=== PATIENT | female | born 1930 | race Caucasian/White ===

== ENCOUNTER 2017-04-02 04:55 | Day surgery (SDC) | payer OTHER ==
[2017-04-02] MEDS ORDERED: LR 1,000 ML IV ONE (06:19)
--- NOTE | 2017-04-02 06:57 | PDHPUP ---
History & Physical Update H&P update statement: This history and physical update is based on an assessment of the patient which was completed after admission or registration (within 24 hours), but prior to the surgery/procedure. H&P update: H&P reviewed & patient examined, no change in patient's condition since H&P completed
[2017-04-02] MEDS ORDERED: CHLORHEXIDINE GLUC HIBICLENS 118 ML BTL TP ONE (07:02)
[2017-04-02] MEDS ORDERED: SURGIFLO MATRIX KIT WITH THROMBIN 8ml TP ONE (07:02)
[2017-04-02] MEDS ORDERED: BUPIVACAINE 0.25% 30 ML SDV ONE (07:03)
[2017-04-02] MEDS ORDERED: BACITRACIN 50,000 UNITS/10 ML SYR IRR ONE (07:03)
[2017-04-02] MEDS ORDERED: THROMBIN (BOVINE) 5,000 UNIT VIAL TP ONE (07:03)
--- NOTE | 2017-04-02 07:10 | PDANEPAE ---
ANE History of Present Illness 87 year old with chronic pain ANE Past Medical History - Cardiovascular History Hx Hypertension: Yes Hx Arrhythmias: No Hx Chest Pain: No Hx Coronary Artery / Peripheral Vascular Disease: No Hx CHF / Valvular Disease: No Hx Palpitations: No Cardiovascular History Comment: pcp monitors bp meds - Pulmonary History Hx COPD: No Hx Asthma/Reactive Airway Disease: No Hx Recent Upper Respiratory Infection: No Hx Oxygen in Use at Home: No Hx Sleep Apnea: No Sleep Apnea Screening Result - Last Documented: Negative - Neurologic History Hx Cerebrovascular Accident: No Hx Seizures: No Hx Dementia: No - Endocrine History Hx Diabetes: No - Renal History Hx Renal Disorders: No - Liver History Hx Hepatic Disorders: No - Neurological & Psychiatric Hx Hx Neurological and Psychiatric Disorders: No - Cancer History Hx Cancer: No - Congenital Disorder History Hx Congenital Disorders: No - GI History Hx Gastrointestinal Disorders: Yes Gastrointestinal History Comment: reflux. constipation - Other Health History Other Health History: wears glasses. upper denture - Chronic Pain History Chronic Pain: Yes (back, groin and lower legs) - Surgical History Prior Surgeries: hemorrhoidectomy. right total shoulder replacement. bilateral knee replacement. margaret. cataracts ANE Review of Systems Review of systems is: negative Review of Systems: - Exercise capacity METS (RN): 3 METS ANE Patient History - Allergies Allergies/Adverse Reactions: No Known Allergies Allergy (Verified 03/19/17 11:06) - Home Medications Home Medications: Lisinopril-Hctz 10-12.5 mg Tab BID 03/19/17 [Last Taken Unknown] Omeprazole DAILY AT 6AM 03/19/17 [Last Taken Unknown] Senna PRN 03/19/17 [Last Taken Unknown] Tylenol BID 03/19/17 [Last Taken Unknown] oxyCODONE IR BID 03/19/17 [Last Taken Unknown] - NPO status NPO Since - Liquids (Date): 04/01/17 NPO Since - Solids (Date): 04/01/17 - Smoking Hx Smoking Status: Never smoked - Family Anes Hx Family Hx Anesthesia Complications: unknown ANE Labs/Vital Signs - Vital Signs Blood Pressure: 137/69 Heart Rate: 84 Respiratory Rate: 16 O2 Sat (%): 84 Height: 149.86 cm Weight: 68.039 kg ANE Physical Exam - Airway Neck exam: FROM Mallampati Score: Class 1 Mouth exam: normal dental/mouth exam - Pulmonary Pulmonary: no respiratory distress - Cardiovascular Cardiovascular: regular rate and rhythym - ASA Status ASA Status: II ANE Anesthesia Plan Anesthesia Plan: MAC
[2017-04-02] MEDS ORDERED: LIDOCAINE 1% 300 MG/30 ML SDV ONE (07:17)
[2017-04-02] MEDS ORDERED: fentaNYL 100 MCG/2 ML INJ ONE ×3 (07:33→09:05)
[2017-04-02] MEDS ORDERED: MIDAZOLAM 2 MG/2 ML VIAL ONE (09:02)
[2017-04-02] MEDS ORDERED: PROPOFOL 200 MG/20 ML VIAL ONE (09:30)
[2017-04-02] MEDS ORDERED: ONDANSETRON DISINTEGRATING 4 MG TAB PO PRN (09:58)
[2017-04-02] MEDS ORDERED: ONDANSETRON 4 MG/2 ML VIAL IVP PRN ×2 (09:58→10:10)
[2017-04-02] MEDS ORDERED: OXYCODONE/APAP 5/325 TAB PO PRN (09:58)
[2017-04-02] MEDS ORDERED: PROMETHAZINE HCL 25 MG/ML INJ IVP PRN (10:10)
[2017-04-02] MEDS ORDERED: fentaNYL 100 MCG/2 ML INJ IVP PRN (10:10)
[2017-04-02] MEDS ORDERED: NALOXONE HCL 0.4 MG/ML INJ IVP PRN (10:10)
[2017-04-02] MEDS ORDERED: HYDROCODONE/APAP 5/325 TAB PO PRN (10:10)
--- NOTE | 2017-04-02 10:10 | GOP ---
[f rep st] OPERATIVE REPORT DATE OF OPERATION: 04/02/2017 SURGEON: Ambreen King DO [employer] SUPERVISOR: Geni Koch PA-C. PREOPERATIVE DIAGNOSIS: 1. Chronic pain syndrome. 2. Spondylosis, nonoperative. POSTOPERATIVE DIAGNOSIS: 1. Chronic pain syndrome. 2. Spondylosis, nonoperative. PROCEDURE PERFORMED: Anchoring, tunneling of percutaneous spinal cord stimulator leads placed by Dr. Niya Xavier and placement of Medtronic non-rechargeable generator to left hip. FINDINGS: SPECIMENS: None. ESTIMATED BLOOD LOSS: 5 mL. INDICATIONS: This is an 87-year-old female who underwent a percutaneous spinal cord stimulator trial with excellent results. Elected to move forward with generator. Dr. Xavier has asked that I help he r place the generator when she places the permanent perc leads. She was identified and consented. S ites were marked, including the level of her belt line, she elected to have the generator replaced on the left. Brought to the operating room, anesthetized under local with MAC. Rolled onto the OR bed with a Mitch frame. All pressure points were appropriately padded. She was prepped and draped in the usual sterile fashion. She was anesthetized with 0.25% Marcaine with epinephrine and Dr. Xavier, please see her dictation, percutaneously placed spinal cord stimulator leads. Incision was made arou nd the needles. The needles were retracted. The stylettes were removed and the Injex bumpy anchors we re placed x2. Two incisions were required as we had two in space needle placements. There was a pocket made with Metzenbaum scissors that connected the two and the anchors were sutured into place with 2-0 silk stitch at 2 positions. We did have some migration and so the anchors were remove d and then the leads were replaced. The anchors were replaced under x-ray. There was no migration aft er anchoring with 2-0 silk stitch at 2 positions as well as a strain relief loop that was placed and the loop was anchored with a 2-0 silk stitch. We then tunneled with a HELM [employer] tunneler down to the pocket. Pocket incision had been made with a 10 blade and a subcutaneous pocket had been created wi th blunt dissection. The leads were brought down out through the tunnel, the straw was discarded. Th e leads were placed in appropriate position and the generator locked in place with a torque wrench, c oiled posterior to the generator, placed it into the pocket. Impedances were checked. All impedances were good. The generator was sutured with 2-0 silk stitch at 2 positions. All incisions were copiou sly irrigated with over a liter each of gentamicin infused saline. We closed the lumbar incisions wit h 2-0 Vicryl pop-offs subcutaneous layer and a 3-0 running nylon for skin. The hip incision was clos ed with 2-0 Vicryl pop-offs for subcutaneous, 3-0 Vicryl pop-offs cutaneous, 4-0 running Monocryl sub cuticular stitch, and Steri-Strips. All lumbar wounds were dressed with Xeroform, gauze, and Tegaderm . Hip incision was dressed with gauze and a Tegaderm. The final x-ray after tunneling revealed no m igration of the leads with the tips at the top of the T9 vertebral body. DESCRIPTION OF PROCEDURE: FLUIDS: 800 mL crystalloid. URINE OUTPUT: None. DRAINS: None. COMPLICATIONS: None. /[id number]/MODL
--- NOTE | 2017-04-02 10:12 | POSTANESTH ---
Post Anesthetic Evaluation Cardiovascular Status: Normal, Stable Respiratory Status: Normal, Stable Level of Consciousness/Mental Status: Can Participate in Eval Pain Control: Adequate, Prn Tx Ordered Nausea/Vomiting Control: Adequate, Prn Tx Ordered Complications Possibly Related to Anesthesia: None Noted
--- NOTE | 2017-04-02 10:29 | POSTOPPROG ---
Post Op Note Date of Operation: 04/02/17 Surgeon: Ambreen King Electro Mechanical Technician: Dr. Xavier Anesthesia: IV Sedation Pre-op Diagnosis: Chronic pain Post-op Diagnosis: Chronic pain Inf/Abcess present in the surg proc area at time of surgery?: No Depth: Deep Incisional (Fascial) EBL: Minimal Plan Plan: 87 yo female s/p percutaneous SCS implant with generator to the right hip - neuro checks - pain control - advance diet as tolerated - dc home Exam Awake. Alert Following commands Muscle strength full at 5/5 Sensation intact
[2017-04-02 11:14] VITALS: PULSE 93; RESP 18; TEMP 98.1
[2017-04-02 11:32] VITALS: BP 145/72; O2SAT 94
--- NOTE | 2017-04-02 12:35 | GOP ---
[f rep st] OPERATIVE REPORT DATE OF OPERATION: 04/02/2017 SURGEON: Niya Xavier MD PREOPERATIVE DIAGNOSIS: 1. Chronic pain syndrome. 2. Spondylosis with radiculopathy. POSTOPERATIVE DIAGNOSIS: 1. Chronic pain syndrome. 2. Spondylosis with radiculopathy. PROCEDURE PERFORMED: A fluoroscopically guided bilateral 8-contact spinal cord stimulator lead place ment. FINDINGS: INDICATIONS: The patient is a very pleasant 87-year-old woman who has had severe longstanding pain a cross her lower back with radiation to both groin regions. She has been treated with a multitude of conservative therapies, but unfortunately continues to have very severe pain. She underwent a spinal cord stimulator trial on 03/10/2017. She had excellent pain relief during the trial. The trial aysha ctrodes provided coverage of both her lower back and her groin pain, which have been limiting her lashaun lity to be functional. She is here today to have permanent implantation of bilateral spinal cord sti mulator leads, which will be placed by myself. Subsequently, the leads will be tunneled and a genera tor will be placed by Dr. Ambreen King. DESCRIPTION OF PROCEDURE: The patient was placed in the prone position. Her back was prepped and dr aped in usual sterile fashion. The skin was localized at the L2 level with lidocaine 1% 4 cc. Subse quently, a 14-gauge curved-tipped Tuohy needle was then advanced to the epidural space entering at th e L1-2 level. Positive loss of resistance was obtained. No CSF was aspirated and no heme was aspira rhona. Subsequently, an 8-contact spinal cord stimulator lead was then advanced through the needle. W ith direct continuous fluoroscopic visualization, the lead was advanced in a cephalad direction and p laced at the superior aspect of T9 for its most superior contacts. A second 14-gauge Tuohy needle wa s advanced to the epidural space adjacent to the first. Again, positive loss of resistance was obtai franky. No CSF was aspirated and no heme was aspirated. A second 8-contact spinal cord stimulator lead was then advanced through this needle, which also entered at the T12-L1 level. Again, with direct f luoroscopic guidance, the electrode was advanced and placed so that the superior aspect of leads were placed at the superior aspect of T9. The leads were staggered slightly. With the patient in fully awake state, each lead was tested. The patient's usual pain pattern was completely covered with the combination of the leads. She had lower back and buttock coverage, as well as groin coverage from th e left lead on the left and the right lead on the right. The remainder of the procedure, which inclu ded anchoring of the leads and placing the generator, was completed by Dr. Ambreen King. There were no complications. The patient will follow up with my office in 7 days. /[id number]/MODL
== END 2017-04-02 11:34 | disposition home or self-care (01) ==
LOC: FSGY 04:55
PROVIDERS: ATTEND Neurological Surgery
PROC: 0JH70MZ Insertion of Stimulator Generator into Back Subcutaneous Tissue and Fascia, Open Approach (ICD-10-PCS; principal; 2017-04-02 07:15)
PROC: 00HU3MZ Insertion of Neurostimulator Lead into Spinal Canal, Percutaneous Approach (ICD-10-PCS; 2017-04-02 07:15)
DX: G89.4 Chronic pain syndrome (principal); M47.24 Other spondylosis with radiculopathy, thoracic region; I10 Essential (primary) hypertension; K21.9 Gastro-esophageal reflux disease without esophagitis; Z96.653 Presence of artificial knee joint, bilateral
CPT/HCPCS: C1767; C1778; C1787; J0171; J0690; J2250; J2704; J3010